=== PATIENT | female | born 1945 | race Caucasian/White ===

== ENCOUNTER 2020-06-05 12:48 | Day surgery (SDC) | payer MEDICARE ==
[2012-02-15 17:58] VITALS: BP 136/86
[2020-06-05] MEDS ORDERED: Xylocaine 1% Vial 30 ML PF IJ ONE (12:49)
[2020-06-05] MEDS ORDERED: LIDOCAINE HCL 2% 100 MG/5 ML IJ ONE (12:49)
[2020-06-05] MEDS ORDERED: DIPRIVAN 200 MG/20 ML IV ONE ×2 (15:07→15:23)
[2020-06-05] MEDS ORDERED: Lactated Ringers 1,000 ML IV ONE (16:34)
--- NOTE | 2020-06-05 16:36 | XRAY ---
Indication: Bilateral L4-S1 MBB. Intraoperative fluoroscopy provided for 1 minute 58 seconds. 5 digital spot images submitted for interpretation demonstrates posterior needle tips projecting over the expected left and right L4-S1 nerve roots. Correlate with intraoperative findings/report. Incidental bilateral L4-S1 posterior spinal fusion hardware and intervertebral spacers.
--- NOTE | 2020-06-05 16:40 | XRAY ---
1 minute and 58 seconds fluoroscopy time in surgery for bilateral L4-S1 MBB.
== END 2020-06-05 15:50 | disposition home or self-care (01) ==
LOC: SDC-PAIN 12:48
PROVIDERS: ATTEND Psychiatry & Neurology Pain Medicine
DX: M47.816 Spondylosis without myelopathy or radiculopathy, lumbar region (principal); F41.8 Other specified anxiety disorders; Z79.899 Other long term (current) drug therapy
CPT/HCPCS: 64493; 64494; 72020; 77002; J2001; J2704

== ENCOUNTER 2020-10-16 12:38 | Day surgery (SDC) | payer MEDICARE ==
[2012-02-15 17:58] VITALS: BP 136/86
[2020-10-16] MEDS ORDERED: BUPIVACAINE 0.5% VIAL IJ ONE (12:39)
[2020-10-16] MEDS ORDERED: DIPRIVAN 200 MG/20 ML IV ONE (15:40)
[2020-10-16] MEDS ORDERED: Lactated Ringers 1,000 ML IV ONE (16:40)
--- NOTE | 2020-10-16 17:08 | XRAY ---
Indication: Bilateral L4-S1 MBB. Intraoperative fluoroscopy provided for 46 seconds. Single digital spot image submitted for interpretation demonstrates posterior needle tips projecting over the expected left and right L4-S1 nerve roots nerve roots. Correlate with intraoperative findings/report. Incidental bilateral L4-S1 posterior spinal fusion hardware and intervertebral spacers.
--- NOTE | 2020-10-16 17:11 | XRAY ---
46 seconds of fluoroscopy was used in surgery for a bilateral L4-S1 MBB.
== END 2020-10-16 16:27 | disposition home or self-care (01) ==
LOC: SDC-PAIN 12:38
PROVIDERS: ATTEND Psychiatry & Neurology Pain Medicine
DX: M47.816 Spondylosis without myelopathy or radiculopathy, lumbar region (principal); Z79.899 Other long term (current) drug therapy
CPT/HCPCS: 64493; 64494; 72020; 77002; J2704

== ENCOUNTER 2020-12-04 07:59 | Day surgery (SDC) | payer MEDICARE ==
[2012-02-15 17:58] VITALS: BP 136/86
[2020-12-04] MEDS ORDERED: BUPIVACAINE 0.5% VIAL IJ ONE (08:00)
[2020-12-04] MEDS ORDERED: Xylocaine 1% Vial 30 ML PF IJ ONE (08:00)
[2020-12-04] MEDS ORDERED: Depo-Medrol 40 MG/ML IM ONE (08:00)
[2020-12-04] MEDS ORDERED: DIPRIVAN 200 MG/20 ML IV ONE (09:43)
--- NOTE | 2020-12-04 11:57 | XRAY ---
Indication: Left L4-S1 RFA. Intraoperative fluoroscopy provided for 59 seconds. 3 digital spot image submitted for interpretation demonstrates posterior needle tips projecting over the expected left L4-S1 nerve roots. Correlate with intraoperative findings/report. Incidental bilateral posterior L4-S1 spinal fusion hardware.
--- NOTE | 2020-12-04 12:10 | XRAY ---
59 seconds of fluoroscopy was used in surgery for a left L4-S1 RFA.
[2020-12-04] MEDS ORDERED: Lactated Ringers 1,000 ML IV ONE (16:25)
== END 2020-12-04 10:25 | disposition home or self-care (01) ==
LOC: SDC-PAIN 07:59
PROVIDERS: ATTEND Psychiatry & Neurology Pain Medicine
DX: M47.816 Spondylosis without myelopathy or radiculopathy, lumbar region (principal); Z79.899 Other long term (current) drug therapy
CPT/HCPCS: 64635; 64636; 72100; 77002; 99100; J1030; J2001; J2704

== ENCOUNTER 2020-12-11 10:21 | Day surgery (SDC) | payer MEDICARE ==
[2012-02-15 17:58] VITALS: BP 136/86
[2020-12-11] MEDS ORDERED: Depo-Medrol 40 MG/ML IM ONE (10:22)
[2020-12-11] MEDS ORDERED: BUPIVACAINE 0.5% VIAL IJ ONE (10:22)
[2020-12-11] MEDS ORDERED: Xylocaine 1% Vial 30 ML PF IJ ONE (10:22)
[2020-12-11] MEDS ORDERED: DIPRIVAN 200 MG/20 ML IV ONE (11:39)
--- NOTE | 2020-12-11 12:45 | XRAY ---
Indication: Right L4-S1 RFA. Intraoperative fluoroscopy provided for 55 seconds. 4 digital spot image submitted for interpretation demonstrates posterior needle tips projecting over the expected right L4-S1 nerve roots. Correlate with intraoperative findings/report. Incidental bilateral posterior L4-S1 spinal fusion hardware.
--- NOTE | 2020-12-11 13:38 | XRAY ---
55 seconds fluoroscopy time in surgery for right L4-S1 RFA.
[2020-12-11] MEDS ORDERED: Lactated Ringers 1,000 ML IV ONE (17:26)
== END 2020-12-11 12:15 | disposition home or self-care (01) ==
LOC: SDC-PAIN 10:21
PROVIDERS: ATTEND Psychiatry & Neurology Pain Medicine
DX: M47.816 Spondylosis without myelopathy or radiculopathy, lumbar region (principal); I10 Essential (primary) hypertension; D47.02 Systemic mastocytosis; F32.A Depression, unspecified; G43.909 Migraine, unspecified, not intractable, without status migrainosus; Z79.899 Other long term (current) drug therapy
CPT/HCPCS: 64635; 64636; 72100; 77002; J1030; J2001; J2704